=== PATIENT | male | born 1975 | race Caucasian/White ===

== ENCOUNTER 2021-06-29 10:42 | Outpatient (REF) | payer OTHER, SELFPAY ==
[2021-06-29 14:31] LABS: Alanine Aminotransferase 83 U/L (0-40); Anion Gap 13 (12-20); Aspartate Amino Transferase 46 U/L (5-37); Blood Urea Nitrogen 8 mg/dL (9-16); Calcium 9.7 mg/dL (8.4-10.2); Carbon Dioxide 27 mmol/L (22-29); Chloride 99 mmol/L (96-108); Cholesterol 252 mg/dL; Estimated Glomerular Filt Rate > 60; Glucose Fasting 94 mg/dL (60-99); HDL Cholesterol 66 mg/dL; LDL Cholesterol Calculated 176 mg/dl; Potassium 4.6 mmol/L (3.3-5.1); Sodium 134 mmol/L (135-145); Triglycerides 53 mg/dL
== END 2021-06-29 10:43 | disposition home or self-care (01) ==
LOC: HO.HMGCLDS 10:42
PROVIDERS: PCP Internal Medicine; Visit Provider Internal Medicine
DX: Z00.00 Encounter for general adult medical examination without abnormal findings (principal); I10 Essential (primary) hypertension
CPT/HCPCS: 36415; 80048; 80061; 84450; 84460